=== PATIENT | female | born 1965 | race Caucasian/White ===

== ENCOUNTER 2016-05-08 00:16 | Emergency (ER) | payer BC ==
[2016-05-08 00:24] VITALS: BP 145/77; PULSE 81; RESP 18; TEMP 97.1
--- NOTE | 2016-05-08 00:47 | ED ---
General Adult HPI - General Chief complaint: Extremity Injury, Lower Stated complaint: Leg Injury Time Seen by Provider: 05/08/16 00:28 Source: patient, RN notes reviewed Mode of arrival: wheelchair Limitations: no limitations - History of Present Illness Initial comments: Patient is a 50-year-old female who presents emergency room today with a chief complaint of increased pain to the left knee. Does admit that she was in bed when she went to stretch and felt a pop behind the left knee. She states that she's had ACL reconstruction in the past. She states pain is worse with extension. States she feels it to the lateral posterior aspect. Denies any other complaints or symptoms. Patient denies any recent fever, chills, shortness of breath, chest pain, back pain, abdominal pain, nausea or vomiting, numbness or tingling, dysuria or hematuria, constipation or diarrhea, headaches or visual changes, or any other complaints. - Related Data Home Medications Medication Instructions Recorded Confirmed Atorvastatin [Lipitor] 40 mg pe PO DAILY 05/08/16 05/08/16 Omeprazole [PriLOSEC] 20 mg PO DAILY 05/08/16 05/08/16 Previous Rx's Medication Instructions Recorded Ibuprofen [Motrin] 600 mg PO Q6HR PRN #40 day 05/08/16 Allergies Allergy/AdvReac Type Severity Reaction Status Date / Time No Known Allergies Allergy Verified 05/08/16 00:24 Review of Systems ROS Statement: Those systems with pertinent positive or pertinent negative responses have been documented in the HPI. ROS Other: All systems not noted in ROS Statement are negative. Past Medical History Past Medical History: No Reported History, Asthma, Hypertension Additional Past Medical History / Comment(s): hypercholestremia. History of Any Multi-Drug Resistant Organisms: None Reported Past Surgical History: Adenoidectomy, Section, Tonsillectomy Additional Past Surgical History / Comment(s): ACL repair Past Psychological History: No Psychological Hx Reported Smoking Status: Former smoker Past Alcohol Use History: Occasional Past Drug Use History: None Reported General Exam - General Exam Comments Initial Comments: General: The patient is awake and alert, in no distress, and does not appear acutely ill. Neck: The neck is supple, there is no tenderness or JVD. Cardiovascular: There is a regular rate and rhythm. No murmur, rub or gallop is appreciated. Respiratory: Lungs are clear to auscultation, respirations are non-labored, breath sounds are equal. No wheezes, stridor, rales, or rhonchi. Musculoskeletal: Normal appearance of the left knee no obvious deformity. Shows limited range of motion with extension due to pain to the posterior lateral aspect. No specific bony tenderness. No tenderness to popliteal. No tenderness over the patella. Sensations intact with pulses equal bilaterally 2+ . Neurological: A&O x 3. CN II-XII intact, There are no obvious motor or sensory deficits. Coordination appears grossly intact. Speech is normal. Skin: Skin is warm and dry and no rashes or lesions are noted. Psychiatric: Normal mood and affect. Limitations: no limitations Course Vital Signs 05/08/16 00:18 Temperature 97.1 F L Pulse Rate 81 Respiratory 18 Rate Blood Pressure 145/77 O2 Sat by Pulse 100 Oximetry Medical Decision Making - Medical Decision Making Patient's x-rays reviewed shows no acute bony abnormality. No fracture or dislocation. Results were discussed with the patient. Patient will be placed in Aniceto wrap for comfort. Advised follow-up with her orthopedic doctor over the next 2 days. Advised ice elevate the affected area. Disposition Clinical Impression: Knee pain Disposition: HOME SELF-CARE Condition: Good Instructions: Knee Pain (ED) Additional Instructions: Please continue to ice elevate the affected area. Please use crutches with weightbearing as tolerated.. Please follow-up with the orthopedic doctor over the next 2 days. Please return to emergency room if any symptoms increase or worsen or for any other concerns. Prescriptions: Ibuprofen [Motrin] 600 mg PO Q6HR PRN #40 day PRN Reason: Pain Referrals: Hemanth Cagle MD [Primary Care Provider] - 1-2 days Jim Salazar DO [Doctor of Osteopathic Medicine] - 1-2 days Time of Disposition: 01:16
--- NOTE | 2016-05-08 01:13 | XR ---
LEFT KNEE, 3 VIEWS INDICATION: Left knee pain COMPARISON: None. FINDINGS: AP, oblique, and lateral views of the left knee are obtained. There is no evidence of acute fracture or malalignment. There is mild osteoarthritis involving the medial femorotibial joint and patellofemoral joint with mild joint space loss and small marginal osteophytes. There are curvilinear sclerotic bands in the distal femoral metaphysis and proximal tibial metaphysis concerning for osteonecrosis/bone infarcts. There is no periosteal reaction. There is no significant joint effusion or soft tissue swelling. IMPRESSION: 1. Curvilinear sclerotic and limits apices of the tibia and femur concerning for osteonecrosis/bone infarcts. Correlate for predisposing clinical factors. MRI may be performed for further evaluation on a nonemergent basis. 2. Mild medial femorotibial and patellofemoral osteoarthritis.
== END 2016-05-08 01:38 | disposition home or self-care (01) ==
LOC: EC 00:16
DX: M25.562 Pain in left knee (principal); E78.00 Pure hypercholesterolemia, unspecified; Z87.891 Personal history of nicotine dependence; Z79.899 Other long term (current) drug therapy; X58.XXXA Exposure to other specified factors, initial encounter; Y92.89 Other specified places as the place of occurrence of the external cause
CPT/HCPCS: 99283

== ENCOUNTER → 2016-05-11 | Outpatient (CLI) | payer BC ==
--- NOTE | 2016-05-11 11:01 | MR ---
EXAMINATION TYPE: MR knee LT wo con DATE OF EXAM: 05/11/2016 8:27 AM COMPARISON: NONE HISTORY: Left knee pain TECHNIQUE: Multiplanar, multisequence imaging of the left knee is performed without IV contrast. FINDINGS: MEDIAL MENISCUS: Anterior and posterior horns are intact without tear. LATERAL MENISCUS: Anterior horn lateral meniscus has linear signal in the anterior portion. This does not communicate with an articular surface and can be compatible with type I degenerative change or i nternal derangement. Posterior horn lateral meniscus appears intact. CRUCIATE LIGAMENTS: Prior ACL repair is evident. Intact ACL is best visualized in the coronal plane n ot well visualized in the sagittal plane. There is diffuse fluid like expansion through the anchor si winifred. Posterior cruciate ligament is intact Through the postsurgical site. COLLATERAL LIGAMENTS: The medial collateral ligament and lateral collateral ligament complex are inta ct and unremarkable. EXTENSOR MECHANISM: Visualized quadriceps and patellar tendons are intact. EFFUSION: Small joint effusion is present extending of the suprapatellar space. POPLITEAL CYST: No popliteal/dudley cyst. TRICOMPARTMENT SPACES: Mild narrowing of the medial lateral compartment joint spaces is present. The patellofemoral joint space appears preserved. CARTILAGE: There is mild diffuse thinning of the articular cartilage of the medial and lateral compar tments. BONE MARROW SIGNAL: Small contusion of the posterior lateral tibial plateau may be present. OTHER: No additional significant abnormality is appreciated. IMPRESSION: 1. Internal derangement of the anterior horn lateral meniscus. 2. Small joint effusion. 3. There is fluid signal surrounding the ACL repair with expansion of the anchor sites. ACL appears t o be intact in the coronal plane but is less well visualized in the sagittal plane.
== END | disposition home or self-care (01) ==
LOC: RADMRIMAIN 07:49
PROVIDERS: ATTEND Orthopaedic Surgery
DX: M23.342 Other meniscus derangements, anterior horn of lateral meniscus, left knee (principal); M25.462 Effusion, left knee; Z98.890 Other specified postprocedural states

== ENCOUNTER 2016-05-15 09:28 | Day surgery (SDC) | payer BC ==
[2016-05-14 10:48] VITALS: BMI 33.0
--- NOTE | 2016-05-14 13:55 | HP ---
DATE OF ADMISSION: 05/15/2016 CHIEF COMPLAINT: Left knee pain. 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 She was getting up from the toilet when she felt her left knee lock. It has been painful since. She has had several locking and giving way episodes ever since. Previously, she had undergone ACL reconstruction in 2007 and was doing reasonably well up until recently. She notes intermittent swelling for the past 6 months. She did go to the emergency room for this. PAST MEDICAL HISTORY: Significant for hypertension, reflux disease and asthma. PAST SURGICAL HISTORY: Significant for left knee arthroscopic ACL reconstruction, tonsillectomy and . CURRENT MEDICATIONS: 1. Ibuprofen. 2. Lipitor. 3. Omeprazole. She denies drug allergies. FAMILY HISTORY: Unknown. SOCIAL HISTORY: Significant for previous tobacco use; however, she quit in 2012. A 16-point review of systems otherwise reviewed and is noncontributory. On examination, the patient is approximately 5 foot 1, 180 pounds of endomorphic habitus. HEENT exam is nonfocal. Neck is supple. She has painless passive motion of her left hip. Straight leg raise is negative. Active motion left knee, -6 to 115 degrees of flexion. She has a large effusion. She is tender about the medial and lateral joint line. Collaterals are stable, Sheridan is 1+ with a soft endpoint, pivot shift is positive. Posterior drawer is negative. Brennon's elicits medial and lateral pain. She has genu valgum alignment. Her distal neurovascular exam appears intact in the left lower extremity. MRI report for the left knee from 05/11/2016 shows an anterior horn lateral meniscal tear along with probable recurrent ACL rupture. Widening of the femoral and tibial tunnels are noted. A small effusion is present. IMPRESSION: Internal derangement of the left knee with probable ACL rerupture/anterior lateral meniscal tear. RECOMMENDATION: I talked to the patient at length regarding her treatment options. At this point, she is having significant pain and mechanical symptoms that limit her normal function and activities. After thorough discussion, she opts to proceed with surgery. We will plan to proceed with arthroscopic evaluation with probable ACL debridement, possible partial lateral meniscectomy. Risks and benefits are discussed at length in layman's terms. We will likely perform that as an outpatient procedure.
[~2016-05-15 09:28] MED LIST: DEXAMETHASONE SOD PHOSPHATE 10 MG/ML 1 ML VIAL IV ONE; LACTATED RINGERS 1,000 ML IV SCH; MIDAZOLAM 2 MG/2 ML VIAL IV PRN; ONDANSETRON 4 MG/2 ML VIAL IVP ONE; SCOPOLAMINE 1.5MG/72HR PATCH TRANSDERM ONE; ceFAZolin 2 GM in SODIUM CHLORIDE 0.9% 100 ML IVPB ONE
[2016-05-15] MEDS ORDERED: LIDOCAINE 1% 20 ML VIAL (10MG/ML) FOR IV START INTRADERMA ONE (10:33)
[2016-05-15 12:08] LABS: Basophils # (A) 0.1 k/uL (0-0.2); Basophils % (A) 1 %; CH 30.1; CHCM 33.1; Eosinophils # (A) 0.3 k/uL (0-0.7); Eosinophils % (A) 4 %; HCT 46.1 % (34.0-46.0); HDW 2.22; HGB 14.8 gm/dL (11.4-16.0); Luc % (Auto) 3; Lymphocytes # (A) 2.7 k/uL (1.0-4.8); Lymphocytes % (A) 28 %; MCH 29.5 pg (25.0-35.0); MCHC 32.2 g/dL (31.0-37.0); MCV 91.6 fL (80.0-100.0); Mean Platelet Volume 7.3; Monocytes # (A) 0.4 k/uL (0-1.0); Monocytes % (A) 4 %; Neutrophils # (A) 5.9 k/uL (1.3-7.7); Neutrophils % (A) 61 %; RBC 5.04 m/uL (3.80-5.40); RDW 13.3 % (11.5-15.5); WBC 9.8 k/uL (3.8-10.6); WBC (Perox) 9.51
[2016-05-15] MEDS ORDERED: SUCCINYLCHOLINE CHLORIDE 100 MG/5 ML SYR IV ONE (12:13)
[2016-05-15] MEDS ORDERED: HYDROmorphone (PF) 1 MG/ML ONE (12:13)
[2016-05-15] MEDS ORDERED: LIDOCAINE 1% INJ 10MG/ML (20 ML MDV) ONE (12:13)
[2016-05-15] MEDS ORDERED: fentaNYL (PF) 50 MCG/ML 2 ML AMP ONE (12:13)
[2016-05-15] MEDS ORDERED: MIDAZOLAM 2 MG/2 ML VIAL ONE (12:13)
[2016-05-15] MEDS ORDERED: PROPOFOL 10 MG/ML 20 ML VIAL IV ONE (12:13)
[2016-05-15 12:19] LABS: Potassium 4.3 mmol/L (3.5-5.1)
[2016-05-15 12:20] LABS: Partial Thromboplastin Time 24.9 sec (22.0-30.0); Prothrombin Time 10.4 sec (9.0-12.0)
--- NOTE | 2016-05-15 13:04 | P.OP ---
Date of Procedure: 05/15/16 Preoperative Diagnosis: Internal derangement left knee Postoperative Diagnosis: Left knee bucket-handle tear lateral meniscus/oblique tear posterior medial meniscus/grade 3 chondral injury distal lateral femoral condyle/partial ACL rerupture Procedure(s) Performed: Left knee arthroscopic partial lateral meniscectomy/partial medial meniscectomy/ ACL debridement/lateral femoral chondrectomy Anesthesia: JODIA Surgeon: Angel Cobos Estimated Blood Loss (ml): 10 Pathology: none sent Condition: stable Disposition: PACU Indications for Procedure: The patient's a 50-year-old female presents with progressive left knee pain and mechanical symptoms after a recent injury. She previously undergone ACL reconstruction. She was having locking and mechanical symptoms. A discussion of the risks and benefits of operative intervention versus continued conservative measures was made with patient. She opted to proceed with surgery. Operative risks to include infection, neurovascular injury, development of blood clots, possible incomplete resolution of symptoms, possible persistence of instability and need for subsequent procedures was discussed. Informed consent was obtained. Operative Findings: As below Description of Procedure: The patient was brought to the operating room, and after induction of general anesthesia examined the left knee. Collaterals were stable, Sheridan was 1+ with a firm endpoint, pivot shift was mildly positive. Posterior drawer was negative. The left lower extremity was prepped and draped in normal fashion. A superior lateral portal was made through a 3 mm skin incision superior and lateral to the patella. This was used for outflow. A moderate effusion was encountered. A lateral portal was made through a 5 mm a vertical skin incision lateral to the patella tendon above the joint line. Diagnostic arthroscopy was performed. A medial portal was made through a similar incision medial to the patellar tendon above the joint line. On inspection of the medial compartment, she is noted have an oblique tear involving the posterior horn of medial meniscus in the white-white junction. This was debrided back to stable base with straight baskets and motorized shaver. The edges were contoured. Mild degenerative changes involving medial compartment were noted. On inspection of the notch, a partial tear involving the ACL graft was noted with tissue impinging on the notch. This was debrided back with a motorized shaver to a stable base. The remaining graft appeared to be stable. On inspection of the lateral compartment, she is noted of bucket-handle tear involving the posterior lateral meniscus. This did not appear amenable to repair. This was debrided back to stable base with straight baskets and a motorized shaver. The edges were contoured. On inspection the patellofemoral articulation, loose chondral fibrillation however no loose chondral fragments. The gutters were clear debris. The knee was then thoroughly irrigated. The portals were closed with Steri-Strips. A sterile dressing was applied in addition to a compression stocking. The patient was awoken from general anesthesia and transferred to recovery room in good condition. Blood loss was estimated 10 mL. No complications were incurred.
[2016-05-15] MEDS ORDERED: ALBUTEROL NEBULIZED 2.5 MG/3 ML INHALATION ONE (13:06)
[2016-05-15] MEDS: HYDROmorphone 1 MG/ML 1 ML SYRINGE IVP PRN ×2 (13:15→13:20)
[2016-05-15 13:28] VITALS: TEMP 98.1
[2016-05-15 13:59] VITALS: RESP 16
[2016-05-15] MEDS ORDERED: HYDROcodone/APAP 7.5-325MG 1 EACH TAB PO ONE (14:30)
[2016-05-15 14:44] VITALS: BP 134/86; PULSE 91
== END 2016-05-15 15:18 | disposition home or self-care (01) ==
LOC: OR 09:28
PROVIDERS: ATTEND Orthopaedic Surgery
DX: S83.252A Bucket-handle tear of lateral meniscus, current injury, left knee, initial encounter (principal); S83.242A Other tear of medial meniscus, current injury, left knee, initial encounter; S83.512A Sprain of anterior cruciate ligament of left knee, initial encounter; X58.XXXA Exposure to other specified factors, initial encounter; Y93.E8 Activity, other personal hygiene; Y92.89 Other specified places as the place of occurrence of the external cause; M23.92 Unspecified internal derangement of left knee; M25.462 Effusion, left knee; M17.12 Unilateral primary osteoarthritis, left knee; I10 Essential (primary) hypertension; E78.5 Hyperlipidemia, unspecified; K21.9 Gastro-esophageal reflux disease without esophagitis; Z79.82 Long term (current) use of aspirin; Z79.1 Long term (current) use of non-steroidal anti-inflammatories (NSAID); Z79.899 Other long term (current) drug therapy; Z87.891 Personal history of nicotine dependence
CPT/HCPCS: 81025; 80051; 85025; 85610; 85730; 29880; J2250; J1100; J0690; J2405; J2001; J3010; J1170; J0330; J2704

== ENCOUNTER 2016-08-28 05:54 | Emergency (ER) | payer BC ==
[2016-08-28] MEDS ORDERED: SODIUM CHLORIDE 0.9% 1,000 ML IV STA ×2 (07:02)
[2016-08-28] MEDS ORDERED: ALBUTEROL NEBULIZED 2.5 MG/3 ML INHALATION STA (07:02)
[2016-08-28] MEDS ORDERED: IPRATROPIUM 0.5 MG/2.5 ML NEBU INHALATION STA (07:02)
[2016-08-28 07:16] VITALS: RESP 18
[2016-08-28 07:23] LABS: Basophils # (A) 0.1 k/uL (0-0.2); Basophils % (A) 1 %; CH 30.7; CHCM 34.1; Eosinophils # (A) 0.3 k/uL (0-0.7); Eosinophils % (A) 2 %; HCT 41.1 % (34.0-46.0); HDW 2.34; HGB 13.6 gm/dL (11.4-16.0); Luc # (Auto) 0.23; Luc % (Auto) 2; Lymphocytes # (A) 2.2 k/uL (1.0-4.8); Lymphocytes % (A) 19 %; MCH 29.8 pg (25.0-35.0); MCV 90.5 fL (80.0-100.0); Mean Platelet Volume 6.4; Monocytes # (A) 0.5 k/uL (0-1.0); Monocytes % (A) 4 %; Neutrophils # (A) 8.1 k/uL (1.3-7.7); Neutrophils % (A) 72 %; RBC 4.55 m/uL (3.80-5.40); RDW 13.8 % (11.5-15.5); WBC 11.3 k/uL (3.8-10.6); WBC (Perox) 10.97
[2016-08-28 07:32] LABS: ALT 51 U/L (9-52); AST 35 U/L (14-36); Alkaline Phosphatase 74 U/L (38-126); Anion Gap 14 mmol/L; Blood Urea Nitrogen 19 mg/dL (7-17); Calcium 10.2 mg/dL (8.4-10.2); Carbon Dioxide 23 mmol/L (22-30); Chloride 104 mmol/L (98-107); Glucose 103 mg/dL (74-99); Non-African American GFR(MDRD) >60 (>60 ml/min/1.73 sqM); Potassium 3.5 mmol/L (3.5-5.1); Sodium 141 mmol/L (137-145); Total Bilirubin 0.4 mg/dL (0.2-1.3); Total Protein 7.5 g/dL (6.3-8.2)
[2016-08-28 07:38] LABS: Partial Thromboplastin Time 24.6 sec (22.0-30.0); Prothrombin Time 10.1 sec (9.0-12.0)
--- NOTE | 2016-08-28 07:39 | XR ---
EXAMINATION TYPE: XR chest 2V DATE OF EXAM: 08/28/2016 COMPARISON: NONE HISTORY: Difficulty breathing, cough TECHNIQUE: Frontal and lateral views of the chest are obtained. FINDINGS: There is no focal air space opacity, pleural effusion, or pneumothorax seen. The cardiac silhouette size is within normal limits. The osseous structures are intact. IMPRESSION: No acute cardiopulmonary process.
--- NOTE | 2016-08-28 07:45 | ED ---
General Adult HPI - General Chief complaint: Shortness of Breath Stated complaint: asthma Time Seen by Provider: 08/28/16 06:13 Source: patient, RN notes reviewed, old records reviewed Mode of arrival: ambulatory - History of Present Illness Initial comments: This is a 50-year-old female the ER for evaluation. This patient today presents for evaluation of shortness of breath, worsening breath cough and congestion. This patient was camping, round [facility], and has been having symptoms worsening over the last 2 days. No fevers. She does have a chronic and worsening dry cough. No chest pain. No significant travel history, no leg pain or edema - Related Data Home Medications Medication Instructions Recorded Confirmed Atorvastatin [Lipitor] 40 mg pe PO DAILY 05/08/16 08/28/16 Omeprazole [PriLOSEC] 20 mg PO QAM 05/08/16 08/28/16 Aspirin 81 mg PO DAILY 05/14/16 08/28/16 Cholecalciferol [Vitamin D3] 2,000 unit PO DAILY 05/14/16 08/28/16 Cyanocobalamin (Vitamin B-12) 1,000 mcg PO DAILY 05/14/16 08/28/16 [Vitamin B-12] Multivitamins, Thera [Multivitamin] 1 tab PO DAILY 05/14/16 08/28/16 Triamterene-Hctz 75-50Mg [Maxzide 0.5 tab PO DAILY 05/14/16 08/28/16 75-50] Allergies Allergy/AdvReac Type Severity Reaction Status Date / Time No Known Allergies Allergy Verified 08/28/16 06:02 Review of Systems ROS Statement: Those systems with pertinent positive or pertinent negative responses have been documented in the HPI. ROS Other: All systems not noted in ROS Statement are negative. Past Medical History Past Medical History: Asthma, GERD/Reflux, Hyperlipidemia, Hypertension Additional Past Medical History / Comment(s): "my lt knee keeps giving out,torn ACL", cortisone inject to knee 05-08-16 and medrol dose pack Apr 2016 History of Any Multi-Drug Resistant Organisms: None Reported Past Surgical History: Adenoidectomy, Section, Tonsillectomy Additional Past Surgical History / Comment(s): ACL repair,c-sect x3 Past Anesthesia/Blood Transfusion Reactions: Postoperative Nausea & Vomiting ( PONV) Additional Past Anesthesia/Blood Transfusion Reaction / Comment(s): unknown family hx-adopted,No hx blood transfusion,claustrophobic Past Psychological History: Anxiety Smoking Status: Former smoker Past Alcohol Use History: Occasional Past Drug Use History: None Reported - Past Family History Father History Unknown: Yes Mother History Unknown: Yes General Exam General appearance: alert, in no apparent distress Head exam: Present: atraumatic, normocephalic, normal inspection Eye exam: Present: normal appearance, PERRL, EOMI. Absent: scleral icterus, conjunctival injection, periorbital swelling ENT exam: Present: normal exam, mucous membranes moist Neck exam: Present: normal inspection. Absent: tenderness, meningismus, lymphadenopathy Respiratory exam: Present: normal lung sounds bilaterally. Absent: respiratory distress, wheezes, rales, rhonchi, stridor Cardiovascular Exam: Present: normal rhythm, tachycardia, normal heart sounds. Absent: systolic murmur, diastolic murmur, rubs, gallop, clicks GI/Abdominal exam: Present: soft, normal bowel sounds. Absent: distended, tenderness, guarding, rebound, rigid Extremities exam: Present: normal inspection, full ROM, normal capillary refill. Absent: tenderness, pedal edema, joint swelling, calf tenderness Back exam: Present: normal inspection Neurological exam: Present: alert, oriented X3, CN II-XII intact Psychiatric exam: Present: normal affect, normal mood Skin exam: Present: warm, dry, intact, normal color. Absent: rash Course Vital Signs 08/28/16 08/28/16 05:57 07:16 Temperature 97.7 F Pulse Rate 110 H 96 Respiratory 20 18 Rate Blood Pressure 143/102 154/70 O2 Sat by Pulse 99 98 Oximetry - Reevaluation(s) Reevaluation #1: 08/28/16 07:43 Patient does have mild improvement after prolonged region Medical Decision Making - Medical Decision Making 50 female the ER for evaluation. This patient presents here for evaluation of shortness of breath cough and congestion, negative chest x-ray normal troponin EKG is normal, patient can be discharged and continue outpatient steroids and breathing treatments as directed - Lab Data Result diagrams: 08/28/16 07:03 08/28/16 07:03 Lab Results 08/28/16 08/28/16 Range/Units 07:03 07:03 WBC 11.3 H (3.8-10.6) k/uL RBC 4.55 (3.80-5.40) m/uL Hgb 13.6 (11.4-16.0) gm/dL Hct 41.1 (34.0-46.0) % MCV 90.5 (80.0-100.0) fL MCH 29.8 (25.0-35.0) pg MCHC 33.0 (31.0-37.0) g/dL RDW 13.8 (11.5-15.5) % Plt Count 499 H (150-450) k/uL Neutrophils % 72 % Lymphocytes % 19 % Monocytes % 4 % Eosinophils % 2 % Basophils % 1 % Neutrophils # 8.1 H (1.3-7.7) k/uL Lymphocytes # 2.2 (1.0-4.8) k/uL Monocytes # 0.5 (0-1.0) k/uL Eosinophils # 0.3 (0-0.7) k/uL Basophils # 0.1 (0-0.2) k/uL Sodium 141 (137-145) mmol/L Potassium 3.5 (3.5-5.1) mmol/L Chloride 104 (98-107) mmol/L Carbon Dioxide 23 (22-30) mmol/L Anion Gap 14 mmol/L BUN 19 H (7-17) mg/dL Creatinine 0.60 (0.52-1.04) mg/dL Est GFR (MDRD) Af Amer >60 (>60 ml/min/1.73 sqM) Est GFR (MDRD) Non-Af >60 (>60 ml/min/1.73 sqM) Glucose 103 H (74-99) mg/dL Calcium 10.2 (8.4-10.2) mg/dL Magnesium 2.0 (1.6-2.3) mg/dL Total Bilirubin 0.4 (0.2-1.3) mg/dL AST 35 (14-36) U/L ALT 51 (9-52) U/L Alkaline Phosphatase 74 (38-126) U/L Total Protein 7.5 (6.3-8.2) g/dL Albumin 4.6 (3.5-5.0) g/dL - Radiology Data Radiology results: report reviewed (Chest x-ray is negative for acute disease), image reviewed Disposition Clinical Impression: Acute exacerbation of chronic obstructive airways disease Disposition: HOME SELF-CARE Condition: Good Instructions: Acute Bronchitis (ED) Referrals: Hemanth Cagle MD [Primary Care Provider] - 1-2 days
[2016-08-28 07:46] LABS: Creatine Kinase 267 U/L (30-135)
[2016-08-28 07:58] LABS: Creatine Kinase MB 1.6 ng/mL (0.0-2.4); Troponin I <0.012 ng/mL (0.000-0.034)
[2016-08-28 09:27] VITALS: BP 137/72; PULSE 114; TEMP 98.3
== END 2016-08-28 09:10 | disposition home or self-care (01) ==
LOC: EC 05:54
DX: J44.1 Chronic obstructive pulmonary disease with (acute) exacerbation (principal); K21.9 Gastro-esophageal reflux disease without esophagitis; I10 Essential (primary) hypertension; E78.5 Hyperlipidemia, unspecified; Z87.891 Personal history of nicotine dependence; Z79.82 Long term (current) use of aspirin; Z79.899 Other long term (current) drug therapy
CPT/HCPCS: 36415; 71020; 80053; 82550; 82553; 83735; 83880; 84484; 85025; 85379; 85610; 85730; 94644; 96360; 99285

== ENCOUNTER → 2017-12-07 | Outpatient (CLI) | payer BC ==
--- NOTE | 2017-12-12 14:12 | MR ---
MR left ankle HISTORY: Left ankle pain Multiplanar multisequence imaging through the left ankle No comparisons There is a cystic, T2 hyperintense conglomeration of multiseptated foci the lateral aspect of the ank le measuring approximately 2.7 cm the largest cystic focus and multiple smaller cystic foci noted jus t at the level anterior to the distal fibula and extending towards the cuboid within the subcutaneous fat where there is an additional focus measuring 12 to 13 mm. Additionally within the calcaneus ther e is a similar T2 hyperintense focus with internal septations measuring 14 mm x 16 mm extending from the joint space, coronal image 19, possible intraosseous ganglion, possibly arising from the sinus Ta rsi. Plantar calcaneus spur is noted. Achilles tendon, plantar aponeurosis, peroneal longus and brevis tendons, flexor and extensor tendons are intact. Degenerative changes are present at the intertarsal joints. IMPRESSION: Ganglion cysts involving the region of the calcaneus as well as the soft tissues laterall y as described, consider podiatry consult, ultrasound to confirm cystic appearance. Osteoarthritis.
== END ==
LOC: RADMRIMAIN 19:17
PROVIDERS: ATTEND Family Medicine
DX: M67.472 Ganglion, left ankle and foot (principal); M77.32 Calcaneal spur, left foot; M19.072 Primary osteoarthritis, left ankle and foot

== ENCOUNTER → 2021-01-30 | Outpatient (CLI) | payer BC ==
--- NOTE | 2021-01-31 12:43 | MM ---
Reason for exam: screening (asymptomatic). Last mammogram was performed 1 year and 1 month ago. Physical Findings: A clinical breast exam by your physician is recommended on an annual basis and results should be correlated with mammographic findings. MG 3D Screening Mammo W/Cad Bilateral CC and MLO view(s) were taken. Prior study comparison: December 28, 2019, mammogram. April 16, 2017, mammogram. There are scattered fibroglandular densities. No significant changes when compared with prior studies. ASSESSMENT: Benign, BI-RAD 2 RECOMMENDATION: Routine screening mammogram of both breasts in 1 year.
== END | disposition home or self-care (01) ==
LOC: RADMAMWWP 16:05
PROVIDERS: ATTEND Obstetrics & Gynecology
DX: Z12.31 Encounter for screening mammogram for malignant neoplasm of breast (principal)
CPT/HCPCS: 77063; 77067

== ENCOUNTER 2021-03-06 03:49 | Emergency (ER) | payer BC ==
[2021-03-06 03:55] VITALS: TEMP 97.8
[2021-03-06] MEDS ORDERED: IPRATROPIUM-ALBUTEROL 3 ML NEB INHALATION STA (04:11)
[2021-03-06] MEDS ORDERED: methylPREDNISolone SOD SUCCI 125 MG/2 ML VIAL IM ONE (04:11)
[2021-03-06 04:16] VITALS: RESP 18
[2021-03-06] MEDS ORDERED: LIDOCAINE VISCOUS 2% 15 ML CUP MUCOUS MEM STA (05:08)
--- NOTE | 2021-03-06 06:09 | XR ---
EXAM: XR Soft Tissue Neck CLINICAL HISTORY: ITS.REASON XR Reason: cough TECHNIQUE: Frontal and lateral views of the soft tissues of the neck. COMPARISON: No relevant prior studies available. FINDINGS: Airway: Unremarkable. No abnormal narrowing. Bones/joints: Moderate to advanced disc degeneration at C4-5 and C5-6. Mild facet arthropathy at C2-3, C3-4, C4-5, C5-6 and C6-7. Soft tissues: Unremarkable. No abnormal soft tissue prominence. Normal epiglottis. IMPRESSION: No evidence of acute cervical soft tissue pathology. Moderate to advanced disc degeneration at C4-5 and C5-6.
--- NOTE | 2021-03-06 06:12 | XR ---
EXAM: XR Chest, 2 Views CLINICAL HISTORY: ITS.REASON XR Reason: cough TECHNIQUE: Frontal and lateral views of the chest. COMPARISON: Comparison is made to prior chest x-ray from April 22, 2020. FINDINGS: Lungs: Unremarkable. No consolidation. Pleural space: Unremarkable. No pneumothorax. Heart: Unremarkable. No cardiomegaly. Mediastinum: Unremarkable. Bones/joints: Unremarkable. IMPRESSION: No evidence of acute cardiopulmonary process.
--- NOTE | 2021-03-06 07:01 | ED ---
URI HPI - General Chief Complaint: Upper Respiratory Infection Stated Complaint: BI Time Seen by Provider: 03/06/21 03:56 Source: patient Mode of arrival: ambulatory Limitations: no limitations - History of Present Illness Initial Comments: This patient's 55-year-old woman who presents to be a value for cough with some yellowish sputum some congestion that is been getting worse over the past 1-2 days. She states that prior to onset she had been doing some painting and thought that this irritated her airways. MD Complaint: cough, nasal congestion Onset/Timin -: days(s) Severity: moderate Quality: burning Consistency: constant Improves With: nothing Associated Symptoms: cough - Related Data Home Medications Medication Instructions Recorded Confirmed Albuterol Sulfate [Ventolin HFA] 2 puff INHALATION RT-Q4H PRN 08/28/16 03/06/21 Omeprazole 40 mg PO DAILY 08/28/16 03/06/21 Ascorbic Acid [Vitamin C] 1,000 mg PO DAILY 03/06/21 03/06/21 Beclomethasone Dipropionate [Qvar 1 puff INHALATION RT-DAILY 03/06/21 03/06/21 40 mcg Redihaler] Cholecalciferol (Vitamin D3) 75 mcg PO DAILY 03/06/21 03/06/21 [Vitamin D3 (3000 Iu)] L.acidoph,Paracasei, B.lactis 1 cap PO DAILY 03/06/21 03/06/21 [Probiotic] Metoprolol Tartrate [Lopressor] 12.5 mg PO DAILY 03/06/21 03/06/21 Montelukast Sodium [Singulair] 10 mg PO DAILY 03/06/21 03/06/21 Pseudoephedrine [Sudafed] 30 mg PO Q4H PRN 03/06/21 03/06/21 Ubidecarenone [Co Q-10] 300 mg PO DAILY 03/06/21 03/06/21 Zinc 50 mg PO DAILY 03/06/21 03/06/21 guaiFENesin SYRUP 100MG/5ML 200 mg PO Q6H PRN 03/06/21 03/06/21 [Robitussin] Previous Rx's Medication Instructions Recorded Azithromycin [Zithromax Z-pack (6 250 mg PO DIRECTED #6 tab 03/06/21 tabs)] Benzonatate [Tessalon Perles] 200 mg PO TID PRN #30 capsule 03/06/21 predniSONE 60 mg PO DAILY #30 tab 03/06/21 Allergies Allergy/AdvReac Type Severity Reaction Status Date / Time No Known Allergies Allergy Verified 03/06/21 11:35 Review of Systems ROS Statement: Those systems with pertinent positive or pertinent negative responses have been documented in the HPI. ROS Other: All systems not noted in ROS Statement are negative. Constitutional: Denies: fever, chills Respiratory: Reports: cough, dyspnea, wheezes Cardiovascular: Reports: chest pain. Denies: palpitations, edema, syncope Gastrointestinal: Denies: abdominal pain, vomiting, diarrhea Genitourinary: Denies: dysuria, hematuria Musculoskeletal: Denies: back pain Skin: Denies: rash Neurological: Denies: headache, weakness Past Medical History Past Medical History: Asthma, GERD/Reflux, Hyperlipidemia, Hypertension Additional Past Medical History / Comment(s): "my lt knee keeps giving out,torn ACL", cortisone inject to knee 05-08-16 and medrol dose pack Apr 2016 History of Any Multi-Drug Resistant Organisms: None Reported Past Surgical History: Adenoidectomy, Section, Tonsillectomy Additional Past Surgical History / Comment(s): ACL repair,c-sect x3 Past Anesthesia/Blood Transfusion Reactions: Postoperative Nausea & Vomiting (PONV) Additional Past Anesthesia/Blood Transfusion Reaction / Comment(s): unknown family hx-adopted,No hx blood transfusion,claustrophobic Past Psychological History: Anxiety Smoking Status: Never smoker Past Alcohol Use History: Occasional Past Drug Use History: None Reported - Past Family History Father History Unknown: Yes Mother History Unknown: Yes General Exam Limitations: no limitations General appearance: alert, in no apparent distress Head exam: Present: atraumatic, normocephalic Eye exam: Present: normal appearance. Absent: scleral icterus, conjunctival injection Neck exam: Present: normal inspection Respiratory exam: Present: wheezes. Absent: respiratory distress, rales, rhonchi, stridor Cardiovascular Exam: Present: regular rate, normal rhythm, normal heart sounds. Absent: systolic murmur, diastolic murmur, rubs, gallop GI/Abdominal exam: Present: soft. Absent: tenderness, guarding, rebound Extremities exam: Present: normal inspection, normal capillary refill. Absent: pedal edema, calf tenderness Back exam: Present: normal inspection. Absent: CVA tenderness (R), CVA tenderness (L) Neurological exam: Present: alert Skin exam: Present: warm, dry, intact, normal color. Absent: rash Course Vital Signs 03/06/21 03/06/21 03/06/21 03:52 04:12 04:30 Temperature 97.8 F Pulse Rate 106 H 101 H 92 Respiratory 22 18 Rate Blood Pressure 153/62 142/89 O2 Sat by Pulse 99 99 Oximetry 03/06/21 03/06/21 03/06/21 04:36 05:14 07:22 Temperature Pulse Rate 99 99 102 H Respiratory 18 18 Rate Blood Pressure 150/86 151/87 O2 Sat by Pulse 94 L 98 Oximetry Medical Decision Making - Lab Data Lab Results 03/06/21 Range/Units 04:24 Influenza Type A (PCR) Not Detected (Not Detectd) Influenza Type B (PCR) Not Detected (Not Detectd) RSV (PCR) Not Detected (Not Detectd) SARS-CoV-2 (PCR) Not Detected (Not Detectd) Disposition Clinical Impression: Tracheobronchitis Disposition: HOME SELF-CARE Condition: Good Instructions (If sedation given, give patient instructions): Acute Bronchitis (ED) Prescriptions: predniSONE 60 mg PO DAILY #30 tab Azithromycin [Zithromax Z-pack (6 tabs)] 250 mg PO DIRECTED #6 tab Is patient prescribed a controlled substance at d/c from ED?: No Referrals: Kirsten Langley MD [Primary Care Provider] - 1-2 days
[2021-03-06 07:24] VITALS: BP 151/87; PULSE 102
== END 2021-03-06 07:24 | disposition home or self-care (01) ==
LOC: EC 03:49
DX: J20.9 Acute bronchitis, unspecified (principal); J45.909 Unspecified asthma, uncomplicated; K21.9 Gastro-esophageal reflux disease without esophagitis; E78.5 Hyperlipidemia, unspecified; I10 Essential (primary) hypertension; F41.9 Anxiety disorder, unspecified; Z20.822 Contact with and (suspected) exposure to COVID-19
CPT/HCPCS: 99283; 96372; 94640; 87636; 70360; 71046; J2930

== ENCOUNTER 2021-03-06 10:13 | Emergency (ER) | payer BC ==
[2021-03-06] MEDS ORDERED: ACETAMINOPHEN TAB 500 MG TAB PO STA (11:36)
--- NOTE | 2021-03-06 11:46 | ED ---
URI HPI - General Chief Complaint: Upper Respiratory Infection Stated Complaint: SOB, revisit Time Seen by Provider: 03/06/21 11:24 Source: patient Mode of arrival: ambulatory Limitations: no limitations - History of Present Illness Initial Comments: Patient presents complaining of runny nose, postnasal drainage, scratchy throat, dry cough, denies any chest pain, no abdominal pain, no nausea or vomiting, no change in bowel examination. No skin rashes or lesions. Was seen ere last night and left before exam. Had a negative COVID-19 test and a ne gative RSV test. Chest x-ray was negative. - Related Data Home Medications Medication Instructions Recorded Confirmed Albuterol Sulfate [Ventolin HFA] 2 puff INHALATION RT-Q4H PRN 08/28/16 03/06/21 Omeprazole 40 mg PO DAILY 08/28/16 03/06/21 Ascorbic Acid [Vitamin C] 1,000 mg PO DAILY 03/06/21 03/06/21 Beclomethasone Dipropionate [Qvar 1 puff INHALATION RT-DAILY 03/06/21 03/06/21 40 mcg Redihaler] Cholecalciferol (Vitamin D3) 75 mcg PO DAILY 03/06/21 03/06/21 [Vitamin D3 (3000 Iu)] L.acidoph,Paracasei, B.lactis 1 cap PO DAILY 03/06/21 03/06/21 [Probiotic] Metoprolol Tartrate [Lopressor] 12.5 mg PO DAILY 03/06/21 03/06/21 Montelukast Sodium [Singulair] 10 mg PO DAILY 03/06/21 03/06/21 Pseudoephedrine [Sudafed] 30 mg PO Q4H PRN 03/06/21 03/06/21 Ubidecarenone [Co Q-10] 300 mg PO DAILY 03/06/21 03/06/21 Zinc 50 mg PO DAILY 03/06/21 03/06/21 guaiFENesin SYRUP 100MG/5ML 200 mg PO Q6H PRN 03/06/21 03/06/21 [Robitussin] Previous Rx's Medication Instructions Recorded Azithromycin [Zithromax Z-pack (6 250 mg PO DIRECTED #6 tab 03/06/21 tabs)] Benzonatate [Tessalon Perles] 200 mg PO TID PRN #30 capsule 03/06/21 predniSONE 60 mg PO DAILY #30 tab 03/06/21 Allergies Allergy/AdvReac Type Severity Reaction Status Date / Time No Known Allergies Allergy Verified 03/06/21 11:35 Review of Systems ROS Statement: Those systems with pertinent positive or pertinent negative responses have been documented in the HPI. ROS Other: All systems not noted in ROS Statement are negative. Past Medical History Past Medical History: Asthma, GERD/Reflux, Hyperlipidemia, Hypertension Additional Past Medical History / Comment(s): "my lt knee keeps giving out,torn ACL", cortisone inject to knee 05-08-16 and medrol dose pack Apr 2016 History of Any Multi-Drug Resistant Organisms: None Reported Past Surgical History: Adenoidectomy, Section, Tonsillectomy Additional Past Surgical History / Comment(s): ACL repair,c-sect x3 Past Anesthesia/Blood Transfusion Reactions: Postoperative Nausea & Vomiting (PONV) Additional Past Anesthesia/Blood Transfusion Reaction / Comment(s): unknown family hx-adopted,No hx blood transfusion,claustrophobic Past Psychological History: Anxiety Smoking Status: Never smoker Past Alcohol Use History: Occasional Past Drug Use History: None Reported - Past Family History Father History Unknown: Yes Mother History Unknown: Yes General Exam - General Exam Comments Initial Comments: Patient appears her malleolus but not toxic. Adequate peripheral perfusion. Limitations: no limitations General appearance: alert, in no apparent distress Head exam: Present: atraumatic, normocephalic, normal inspection Eye exam: Present: normal appearance, PERRL, EOMI. Absent: scleral icterus, conjunctival injection, periorbital swelling ENT exam: Present: mucous membranes moist, TM's normal bilaterally, normal external ear exam, other (Patient has clear postnasal drainage, clear sinus rhinorrhea. No evidence of peritonsillar abscess. No exudate. Mild posterior pharyngeal erythema. Airway is patent. No sinus tenderness.) Neck exam: Present: normal inspection. Absent: tenderness, meningismus, lymphadenopathy Respiratory exam: Present: normal lung sounds bilaterally, other (Patient has no tachypnea on exam. Respiratory rate is 18. No adventitious lung sounds). Absent: respiratory distress, wheezes, rales, rhonchi, stridor Cardiovascular Exam: Present: regular rate, normal rhythm, normal heart sounds. Absent: systolic murmur, diastolic murmur, rubs, gallop, clicks GI/Abdominal exam: Present: soft, normal bowel sounds. Absent: distended, tenderness, guarding, rebound, rigid Extremities exam: Present: normal inspection, full ROM, normal capillary refill. Absent: tenderness, pedal edema, joint swelling, calf tenderness Back exam: Present: normal inspection Neurological exam: Present: alert, oriented X3, CN II-XII intact Psychiatric exam: Present: normal affect, normal mood Skin exam: Present: warm, dry, intact, normal color. Absent: rash Course Vital Signs 03/06/21 10:27 Temperature 98.5 F Pulse Rate 60 Respiratory 28 H Rate Blood Pressure 155/74 O2 Sat by Pulse 97 Oximetry Medical Decision Making - Medical Decision Making Patient septostomy most consistent with a viral upper respiratory infection. Given the fact she had negative COVID-19 test and negative RSV test yesterday. This does raise suspicion of other viral causes. Does not appear to be consistent with bacterial sinusitis. Patient has no adventitious lung sounds are normal chest x-ray yesterday. Vital signs stable, oxygen saturation is normal otherwise. Plan for discharge. She has corticosteroids at home which she did not start. Patient was also prescribed antibiotics last night. Follow-up with your regular physician as directed. Return to the ER immediately if any symptoms worsen, new symptoms arise, or any other problems develop. Patient Streptococcus test is negative. Repeat vital signs are stable, patient afebrile. Patient was counseled on conservative therapy for viral upper respiratory infection. Patient voiced understanding. - Lab Data Lab Results 03/06/21 Range/Units 11:54 Group A Strep Rapid Negative (Negative) Disposition Clinical Impression: URI (upper respiratory infection) Disposition: HOME SELF-CARE Condition: Stable Instructions (If sedation given, give patient instructions): Upper Respiratory Infection (ED) Additional Instructions: Taking medications as prescribed by the ER last night. Follow-up with your regular physician as directed. Follow-up with your regular physician as directed. Return to the ER immediately if any symptoms worsen, new symptoms arise, or any other problems develop. Prescriptions: Benzonatate [Tessalon Perles] 200 mg PO TID PRN #30 capsule PRN Reason: Cough Is patient prescribed a controlled substance at d/c from ED?: No Referrals: Kirsten Langley MD [Primary Care Provider] - 03/11/21 Time of Disposition: 12:45
[2021-03-06] MEDS ORDERED: LIDOCAINE VISCOUS 2% 15 ML CUP MUCOUS MEM ONE (11:52)
[2021-03-06 12:54] VITALS: BP 132/78; PULSE 80; RESP 20; TEMP 98
== END 2021-03-06 13:06 | disposition home or self-care (01) ==
LOC: EC 10:13
DX: J06.9 Acute upper respiratory infection, unspecified (principal); J45.909 Unspecified asthma, uncomplicated; K21.9 Gastro-esophageal reflux disease without esophagitis; E78.5 Hyperlipidemia, unspecified; I10 Essential (primary) hypertension; F41.9 Anxiety disorder, unspecified; Z20.822 Contact with and (suspected) exposure to COVID-19
CPT/HCPCS: 87081; 87430; 99283

== ENCOUNTER 2022-09-24 10:02 | Day surgery (SDC) | payer BC ==
[2022-09-18 10:55] VITALS: BMI 34.0
[~2022-09-24 10:02] MED LIST changes: +ATROPINE SULFATE 0.4 MG/ML 1 ML VIAL IM ONE; -DEXAMETHASONE SOD PHOSPHATE 10 MG/ML 1 ML VIAL IV ONE; -MIDAZOLAM 2 MG/2 ML VIAL IV PRN; -ONDANSETRON 4 MG/2 ML VIAL IVP ONE; -SCOPOLAMINE 1.5MG/72HR PATCH TRANSDERM ONE; -ceFAZolin 2 GM in SODIUM CHLORIDE 0.9% 100 ML IVPB ONE
[2022-09-24 10:47] VITALS: TEMP 97.7
[2022-09-24 10:53] LABS: Glucose,Whole Blood 109 mg/dL (70-110)
[2022-09-24] MEDS ORDERED: MIDAZOLAM 2 MG/2 ML VIAL ONE (11:35)
[2022-09-24] MEDS ORDERED: LIDOCAINE 2% INJ 20 MG/ML (2 ML VIAL) ONE (11:35)
[2022-09-24] MEDS ORDERED: KETAMINE 10 MG/ML 20 ML VIAL ONE (11:35)
[2022-09-24] MEDS ORDERED: PROPOFOL 10 MG/ML 20 ML VIAL IV ONE (11:35)
[2022-09-24] MEDS ORDERED: fentaNYL (PF) 50 MCG/ML 2 ML AMP ONE (11:35)
[2022-09-24] MEDS ORDERED: LIDOCAINE 2% (PF) 20 MG/ML 2 ML AMP INHALATION ONE (11:50)
[2022-09-24 12:05] VITALS: RESP 16
[2022-09-24 12:18] VITALS: BP 124/85; PULSE 97
--- NOTE | 2022-09-24 12:19 | PCN ---
PROCEDURE NOTE PROCEDURE: Bronchoscopy, airway examination, therapeutic lavage, BAL right middle lobe. PREOP DIAGNOSIS: Chronic cough. POSTOP DIAGNOSIS: Chronic cough. FIRST SANTA'S HELPER: Viki Veliz. ANESTHESIA: General anesthesia. DESCRIPTION OF PROCEDURE: There was informed consent and universal timeout. The patient's procedure took place in room #1 [facility]. After the patient was adequately sedated and fully monitored, the bronchoscope was inserted through the right nostril. It passed through the right nasopharynx into the oropharynx. The hypopharynx was identified and topicalized. The hypopharyngeal structures, including anterior commissure, true cords, false cords, arytenoids, epiglottis, vallecula, and piriform sinuses right and left, were all normal. The glottic opening was topicalized and the bronchoscope was pushed through the glottic opening into the trachea. There was [id number] tracheomalacia noted. Tracheal brandi was sharp. The right and left mainstem were topicalized. The right upper lobe and its 3 segments, the right middle lobe and its 2 segments, the right lower lobe and its 5 segments, the left upper lobe proper and its 2 segments, the lingula and its 2 segments, and the left lower lobe and its 4 segments were all found to have similar findings of mild bronchitis. There were minimal secretions. There was no dominant mass or tumor. There was some mucosal friability. Secretions were suctioned without difficulty. The bronchoscope was then wedged into the right middle lobe. We did a formal BAL with 30 mL of fluid recovered. It will be sent to the laboratory for analysis. The patient tolerated the procedure well without difficulty. There was no immediate complication. The patient tolerated the procedure well and will be recovered. MMODL / IJN: [id number] /
[2022-09-25 04:48] LABS: Appearance,BF Blood Tinged (Clear); RBC, Body Fluid 101875 /UL (0-2000)
[2022-09-28 09:36] LABS: Nucleated Cells, Body Fluid 31 /UL
== END 2022-09-24 13:00 | disposition home or self-care (01) ==
LOC: ORWHC2ENDO 10:02
PROVIDERS: ATTEND Internal Medicine Critical Care Medicine
DX: J45.909 Unspecified asthma, uncomplicated (principal); U07.1 COVID-19; F41.9 Anxiety disorder, unspecified; Z79.82 Long term (current) use of aspirin; Z79.899 Other long term (current) drug therapy
CPT/HCPCS: 88108; 88305; 89050; 87070; 87205; 87075; 87116; 87102; 87206; 31624; J2250; J0461; J3010; J2704; J2001 ×2

== ENCOUNTER 2023-04-02 11:40 | Day surgery (SDC) | payer BC ==
[2023-03-30 11:12] VITALS: BMI 34.4
[~2023-04-02 11:40] MED LIST changes: -ATROPINE SULFATE 0.4 MG/ML 1 ML VIAL IM ONE; +LIDOCAINE 1% (10MG/ML) FOR IV START INTRADERMA PRN
[2023-04-02] MEDS: LACTATED RINGERS 1,000 ML IV SCH (12:27)
[2023-04-02 12:42] VITALS: TEMP 97.7
[2023-04-02 12:44] LABS: Glucose,Whole Blood 98 mg/dL (70-110)
[2023-04-02] MEDS: ATROPINE SULFATE 0.4 MG/ML 1 ML VIAL IM ONE (12:46)
[2023-04-02] MEDS ORDERED: PROPOFOL 10 MG/ML 20 ML VIAL IV ONE (13:01)
[2023-04-02] MEDS ORDERED: LIDOCAINE 1% INJ 10MG/ML (20 ML MDV) ONE (13:01)
[2023-04-02] MEDS: LIDOCAINE 2% INJ 20 MG/ML INTRATRACH ONE (13:09)
[2023-04-02 13:40] VITALS: BP 106/70; PULSE 100; RESP 22
--- NOTE | 2023-04-02 19:43 | PCN ---
PROCEDURE NOTE PULMONARY/CRITICAL CARE PROCEDURE NOTE: PROCEDURES PERFORMED: Bronchoscopy, airway examination, therapeutic lavage, BAL right middle lobe, endobronchial biopsies left lower lobe. PREOPERATIVE DIAGNOSIS: Chronic cough and tracheobronchomalacia. POSTOPERATIVE DIAGNOSIS: Chronic cough and tracheobronchomalacia. GROCERY BUYER: Dr. Liu. LOCKER OPERATOR: First director medical surgical is Viki Veliz. The patient's procedure took place in room #1. ANESTHESIA: Provided general anesthesia. DESCRIPTION OF PROCEDURE: There was informed consent and universal timeout. After the patient was adequately sedated and being fully monitored, the bronchoscope was inserted through the right nostril. It passed through the right nasopharynx into the oropharynx. The hypopharynx was identified. The hypopharyngeal structures, including anterior commissure, true cords, false cords, arytenoids, piriform sinuses right and left, vallecula, and epiglottis, all appeared normal. After topicalization of the glottic opening, the bronchoscope was pushed through the glottic opening into the trachea. Trachea appeared relatively normal say for tracheomalacia which was noted on a previous bronchoscopy. There were some secretions noted in the distal trachea. The tracheal brandi was sharp. The right and left mainstem were topicalized. We did a thorough evaluation of the right upper lobe and its 3 segments, the right middle lobe and its 2 segments, the right lower lobe and its 5 segments, left upper lobe proper and its 2 segments, lingula and its 2 segments, and the left lower lobe and its 4 segments. There were diffuse bronchitis changes throughout. The mucosa was erythematous and hyperemic. There was some vascular engorgement. There was some mucosal friability. There was no dominant mass or tumor. Next bronchoscope was wedged into the right middle lobe. We did a formal BAL with 38 mL of fluid recovered. It will be sent for analysis. On the left side, because of the significant chronic inflammation noted, we did endobronchial biopsies in the left lower lobe. The patient tolerated the procedure well. There was no immediate complication. The patient will be recovered. The bronchoscope was withdrawn. The biopsies and the fluid will be sent for analysis. MMODL / IJN: [id number] /
[2023-04-03 06:21] LABS: Appearance,BF Blood Tinged (Clear); RBC, Body Fluid 14450 /UL (0-2000)
[2023-04-05 10:57] LABS: Nucleated Cells, Body Fluid 25 /UL
== END 2023-04-02 14:30 | disposition home or self-care (01) ==
LOC: ORWHC2ENDO 11:40
PROVIDERS: ATTEND Internal Medicine Critical Care Medicine
DX: J42 Unspecified chronic bronchitis (principal); F34.1 Dysthymic disorder; K21.9 Gastro-esophageal reflux disease without esophagitis; E78.00 Pure hypercholesterolemia, unspecified; Q32.0 Congenital tracheomalacia; F41.9 Anxiety disorder, unspecified; I10 Essential (primary) hypertension; E78.5 Hyperlipidemia, unspecified; E11.9 Type 2 diabetes mellitus without complications; Z79.82 Long term (current) use of aspirin; Z88.2 Allergy status to sulfonamides; Z79.899 Other long term (current) drug therapy
CPT/HCPCS: 31624; 31625; 87798 ×3; 87496; 87498; 87529; 88108; 88305; 89050; 87502; 87634; 87070; 87205; 87116; 87102; 87206; 87635; J2001 ×2; J0461; J2704

== ENCOUNTER → 2023-05-26 | Outpatient (CLI) | payer BC ==
--- NOTE | 2023-05-26 12:10 | FL ---
COMPARISON: NONE DATE OF EXAM: 05/26/2023 HISTORY: Dysphagia A number of thin and thick substances were ingested under the care of the department of speech pathol ogy. There is no evidence of aspiration or penetration. There is no evidence of obstruction. No yana ges submitted in 39 seconds fluoroscopy provided IMPRESSION: 1. No evidence of aspiration or penetration.
== END | disposition home or self-care (01) ==
LOC: RADFLMAIN 11:24
PROVIDERS: ATTEND Otolaryngology
DX: R22.1 Localized swelling, mass and lump, neck (principal); R13.10 Dysphagia, unspecified
CPT/HCPCS: 74230

== ENCOUNTER → 2023-05-28 | Outpatient (CLI) | payer BC ==
--- NOTE | 2023-05-31 19:20 | MR ---
EXAMINATION TYPE: MR neck wo/w con DATE OF EXAM: 05/28/2023 7:11 AM CLINICAL INDICATION:Female, 57 years old with history of R22.1 LOCALIZED SWELLING, MASS AND LUMP, NEC K; PH, COMPARISON: CT neck 09/20/2022, MRI Neck 11/23/2022 TECHNIQUE: Multi planar, multi sequence imaging was performed of the neck soft tissues. MR contrast: IV Contrast: cc 8.5 cc Gadavist FINDINGS: The glottis appears unremarkable. Several nonenlarged anterior chain lymph nodes are iden tified. The parotid glands and submandibular glands are symmetrical. No evidence for intraglandular mass. There is a high T2/high T1 signal lesion posterior to the right internal carotid artery measuri ng at least 21 x 12 mm which is fat density on prior CT. No abnormal postcontrast enhancement. Fat-sa t sequences demonstrate loss of signal. No abnormal postcontrast enhancement. The cervical vertebral bodies have preserved heights and alignment. Multilevel disc desiccation and anterior osteophytosis are present. The cervical spinal cord demonstrates a normal appearance. IMPRESSION: Fat-containing lesion just posterior to the right internal carotid artery at the skull base measuring up to 21 x 12 mm and is most compatible with lipoma. No suspicious masses or lymphadenopathy. Stable in size from prior CT.
== END | disposition home or self-care (01) ==
LOC: RADMRIMAIN 06:08
PROVIDERS: ATTEND Otolaryngology
DX: R22.1 Localized swelling, mass and lump, neck (principal)
CPT/HCPCS: 70543; A9585

== ENCOUNTER → 2024-01-12 | Outpatient (CLI) | payer BC ==
--- NOTE | 2024-01-13 05:24 | MR ---
EXAMINATION TYPE: MR knee RT wo con DATE OF EXAM: 01/12/2024 COMPARISON: Outside right knee x-ray and January 03, 2024 HISTORY: Rt knee injury, medial pain for 4 months. History of prior meniscal and ACL surgery. TECHNIQUE: Multiplanar, multisequence images of the knee is performed without IV contrast. FINDINGS: MEDIAL MENISCUS: Truncated appearance to posterior horn with abnormal signal extending to inferior ar ticular surface. LATERAL MENISCUS: Anterior and posterior horns are intact without tear. CRUCIATE LIGAMENTS: The anterior and posterior cruciate ligaments are intact and unremarkable. COLLATERAL LIGAMENTS: The medial collateral ligament and lateral collateral ligament complex are inta ct and unremarkable. EXTENSOR MECHANISM: Visualized quadriceps and patellar tendons are intact. EFFUSION: Small size suprapatellar joint effusion. POPLITEAL CYST: Moderate size popliteal/dudley cyst measuring 5.8 cm long axis sagittal image 12. TRICOMPARTMENT SPACES: [id number] tricompartment joint space loss and spurring. CARTILAGE: Cartilaginous loss medial tibial femoral compartment. BONE MARROW SIGNAL: No focal abnormal marrow signal is appreciated. OTHER: No additional significant abnormality is appreciated. IMPRESSION: 1. Mild to moderate tricompartment degenerative changes are present as detailed above. 2. Suspect prior surgical change to posterior horn medial meniscus but a recurrent full-thickness tea r is suspected. 3. Small-size suprapatellar joint effusion. 4. Moderate-size popliteal cyst. [facility], , 01/13/2024 5:22 AM
== END | disposition home or self-care (01) ==
LOC: RADMRIMAIN 12:38
PROVIDERS: ATTEND Orthopaedic Surgery
DX: M17.11 Unilateral primary osteoarthritis, right knee (principal); M25.461 Effusion, right knee; M71.21 Synovial cyst of popliteal space [Baker], right knee

== ENCOUNTER → 2024-02-21 | Outpatient (CLI) | payer BC ==
[2024-02-21 15:16] LABS: Basophils # (A) 0.06 X 10*3/uL (0.00-0.10); Basophils % (A) 0.8 %; Eosinophils # (A) 0.24 X 10*3/uL (0.04-0.35); Eosinophils % (A) 3.1 %; HCT 43.5 % (37.2-46.3); Lymphocytes # (A) 2.63 X 10*3/uL (0.90-5.00); Lymphocytes % (A) 34.5 %; MCH 28.7 pg (27.0-32.0); MCHC 32.2 g/dL (32.0-37.0); MCV 89.3 FL (80.0-97.0); Mean Platelet Volume 8.3 FL (9.5-12.2); Monocytes # (A) 0.57 X 10*3/uL (0.20-1.00); Monocytes % (A) 7.5 %; NRBC Per 100 WBC 0 X 10*3/uL (0.00-0.01); Neutrophils % (A) 53.8 %; Platelet Count 422 X 10*3/uL (140-440); RBC 4.87 X 10*6/uL (4.10-5.20); RDW 13.7 % (11.5-14.5); WBC 7.62 X 10*3/uL (4.50-10.00)
[2024-02-21 16:03] LABS: Blood Urea Nitrogen 12.9 mg/dL (9.0-27.0); Carbon Dioxide 26.2 mmol/L (21.6-31.8); Chloride 103 mmol/L (96-109); Glucose 97 mg/dL (70-110); Potassium 4.5 mmol/L (3.5-5.5); Sodium 140 mmol/L (135-145)
== END | disposition home or self-care (01) ==
LOC: LABWHC1 10:53
PROVIDERS: ATTEND Orthopaedic Surgery
DX: Z01.818 Encounter for other preprocedural examination (principal); M23.91 Unspecified internal derangement of right knee
CPT/HCPCS: 36415; 80048; 85025

== ENCOUNTER 2024-03-10 07:44 | Day surgery (SDC) | payer BC ==
[2024-03-07 15:27] VITALS: BMI 35.9
--- NOTE | 2024-03-09 10:50 | P.HPOR ---
History of Present Illness H&P Date: 03/09/24 Chief Complaint: Right knee pain The patient is a 58-year-old female who presents with right knee pain after an injury approximately 4 months ago. She felt a pop in her knee. She has had significant pain ever since. She notes medial pain with any weightbearing activities. She notes catching and locking. She denies previous problems. Review of Systems Per HPI Past Medical History Past Medical History: Asthma, Diabetes Mellitus, GERD/Reflux, Hearing Disorder / Deafness, Hyperlipidemia, Hypertension Additional Past Medical History / Comment(s): hx tracheomalacia recently di agnosed w/in last year, rt torn meniscus, Hx racing heart rate, mild Covid 2022. Back problems. Cough, tongue swelling and clearing of throat after started on Lisinopril. 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 Hx colon polyps. Pre-Diabetes, monitors blood sugar at home and watches diet. Some trouble hearing. History of Any Multi-Drug Resistant Organisms: None Reported Past Surgical History: Adenoidectomy, Section, Orthopedic Surgery, Tonsillectomy Additional Past Surgical History / Comment(s): Section X3, left knee surgery X2, fatty tumor removed from back, colonoscopies/polypectomy, bronchoscopies. Past Anesthesia/Blood Transfusion Reactions: Postoperative Nausea & Vomiting (PONV) Additional Past Anesthesia/Blood Transfusion Reaction / Comment(s): Unknown family hx-adopted. No hx blood transfusions. Claustrophobic. PONV after one of her C-Sections. After Bronchoscopy had severe blood shot eyes. tracheomalacia Smoking Status: Former smoker - Past Family History Father History Unknown: Yes Family Medical History: Unable to Obtain Mother History Unknown: Yes Family Medical History: Unable to Obtain Additional Family Medical History / Comment(s): Patient adopted, family hx unknown. Medications and Allergies Home Medications Medication Instructions Recorded Confirmed Type Omeprazole 40 mg PO QAM 08/28/16 03/07/24 History Metoprolol Tartrate [Lopressor] 12.5 mg PO QAM 03/06/21 03/07/24 History Zinc 50 mg PO DAILY 03/06/21 03/07/24 History Aspirin [Adult Low Dose Aspirin EC] 81 mg PO DAILY 09/18/22 03/07/24 History FLUoxetine HCL [PROzac] 10 mg PO QAM 09/18/22 03/07/24 History Multivit with Calcium,Iron,Min 1 each PO DAILY 09/18/22 03/07/24 History [Women's Multivitamin] Rosuvastatin [Crestor] 10 mg PO DAILY 09/18/22 03/07/24 History Ubidecarenone [Co Q-10] 100 mg PO DAILY 03/30/23 03/07/24 History Ascorbic Acid [Vitamin C] 500 mg PO DAILY 03/07/24 03/07/24 History Budesonide/Formoterol Fumarate 2 inhalation INHALATION DAILY@1100 03/07/24 03/07/24 History [Budesonide-Formoterol 160-4.5] Cholecalciferol [Vitamin D3 (25 50 mcg PO DAILY 03/07/24 03/07/24 History Mcg = 1000 Iu)] Erythromycin [Hiren-Tab] 250 mg PO MOWEFR 03/07/24 03/07/24 History Allergies Allergy/AdvReac Type Severity Reaction Status Date / Time lisinopril AdvReac cough, Verified 03/07/24 15:03 tongue swelling Physical Examination - Knee right Appearance: effusion Effusion grade: grade 2 Tenderness with palpation: anterior, medial Pain: throughout ROM Gait: limping ROM: extension: -5 degrees ROM: flexion: 120 degrees Crepitus with motion: Yes Strength: extension: 5/5 Strength: flexion: 5/5 Meniscal tests: medial meniscal tests: positive, medial joint line pain: positive Results Patient is a well-developed well-nourished female approximately 5 foot 1, 185 pounds of endomorphic habitus. HEENT exam is nonfocal, neck is supple. She has painless passive motion of her right hip. She is tender about the medial joint line of the right knee. Collaterals are stable, Sheridan's negative, Brennon's elicits medial pain. She does have an antalgic gait pattern. Her distal neurovascular exam appears intact in the right lower extremity. - Diagnostic results Knee MRI: image reviewed (MRI of the right knee obtained previously shows a posterior medial meniscal tear.) Assessment and Plan Assessment: Internal derangement right kneesymptomatic medial meniscal tear Plan: I talked to the patient at length regarding her condition along with treatment options. This point she is quite symptomatic having pain and mechanical symptoms after this acute injury. After a thorough discussion she opts to proceed with surgery. We will plan to proceed with right knee arthroscopy with probable partial medial meniscectomy. Risks and benefits were discussed at length in layman's terms. We will likely perform that as an outpatient procedure.
[~2024-03-10 07:44] MED LIST changes: -LIDOCAINE 1% (10MG/ML) FOR IV START INTRADERMA PRN; +MIDAZOLAM 2 MG/2 ML VIAL IV PRN
[2024-03-10] MEDS: IV FLUID CONTINUATION 500 ML IV ONE (08:00)
[2024-03-10] MEDS: ONDANSETRON 4 MG/2 ML VIAL IVP ONE (08:29)
[2024-03-10] MEDS: SCOPOLAMINE 1 MG/72 HR PATCH TRANSDERM ONE (08:29)
[2024-03-10] MEDS: DEXAMETHASONE SOD PHOSPHATE 4 MG/ML 1 ML VIAL IV ONE (08:29)
[2024-03-10] MEDS ORDERED: PROPOFOL 10 MG/ML 20 ML VIAL IV ONE (09:44)
[2024-03-10] MEDS ORDERED: fentaNYL (PF) 50 MCG/ML 2 ML AMP ONE (09:44)
[2024-03-10] MEDS ORDERED: SUCCINYLCHOLINE CHLORIDE 200 MG/10 ML VIAL IV ONE (09:44)
[2024-03-10] MEDS ORDERED: ALBUTEROL HFA INHALER INHALATION ONE (09:44)
[2024-03-10] MEDS ORDERED: MIDAZOLAM 2 MG/2 ML VIAL ONE (09:44)
[2024-03-10] MEDS ORDERED: LIDOCAINE 1% INJ 10MG/ML (20 ML MDV) ONE (09:44)
[2024-03-10] MEDS: EPINEPHrine (PF) 1 ML in SODIUM CHLORIDE 0.9% IRRIGATIO 3,000 ML IRRIGATION ONE (10:11)
[2024-03-10] MEDS: LACTATED RINGERS 1,000 ML IV ONE (10:19)
--- NOTE | 2024-03-10 10:42 | P.OP ---
Date of Procedure: 03/10/24 Preoperative Diagnosis: Right knee internal derangementmedial meniscal tear Postoperative Diagnosis: Right knee posterior medial meniscal tear/posterior lateral meniscal tear Procedure(s) Performed: Right knee arthroscopic partial medial meniscectomy/partial lateral meniscectomy Anesthesia: FABRICIO Surgeon: Angel Cobos Estimated Blood Loss (ml): 10 Pathology: none sent Condition: stable Disposition: PACU Indications for Procedure: The patient is a 58-year-old female who presents with right knee pain and mechanical symptoms after an acute twisting injury despite conservative measures. A discussion of the risks and benefits of operative intervention versus continued conservative measures was made with the patient. She opted to proceed with surgery. Operative risks include infection, neurovascular injury developing blood clots, possible incomplete resolution of symptoms, possible worsening of symptoms need for subsequent procedures was discussed. Informed consent was obtained. Operative Findings: As below Description of Procedure: The patient was brought to the operating room, and after induction of general anesthesia examined the right knee. Collaterals were stable, Sheridan was negative, and posterior drawer was negative. The right lower extremity was prepped and draped in a normal fashion. A superior lateral portal was made through a 3 mm skin incision superior and lateral to the patella. This was used for outflow. A lateral portal was made through a 5 mm vertical skin incision lateral to the patella tendon above the joint line. Diagnostic arthroscopy was performed. On inspection of the medial compartment, an oblique tear involving the posterior horn the medial meniscus in the white-red junction was noted. This was debrided back to stable base with straight baskets and a motorized shaver. The remaining medial meniscus was stable and intact. Grade 2-3 chondral changes were noted diffusely on the posterior medial femoral condyle. On inspection of the notch, the anterior cruciate ligament appeared to be intact. On inspection of the lateral compartment, a radial tear involving the middle to posterior one third of the lateral meniscus was noted in the white- white junction. This was debrided back to stable base with straight baskets and a motorized shaver. Grade 2-3 chondral changes were noted diffusely in the lateral compartment. On inspection of the patellofemoral articulation, there was some chondral fibrillation however no loose chondral fragments. The gutters were clear debris. The knee was then thoroughly irrigated. The portals were closed with Steri-Strips. A sterile dressing was applied in addition to a compression stocking. The patient was awoken from general anesthesia and transferred to recovery room in good condition. Blood loss was estimated at 10 mL. No complications were incurred.
[2024-03-10 11:01] VITALS: TEMP 97.3
[2024-03-10] MEDS: HYDROmorphone 0.5 MG/0.5 ML SYRINGE IVP PRN (11:03)
[2024-03-10] MEDS: RACEPINEPHRINE 2.25% NEB 0.5 ML NEBU INHALATION STA (11:07)
[2024-03-10] MEDS: LIDOCAINE 4% (PF) 5 ML AMP IH STA (11:10)
[2024-03-10 11:34] LABS: Glucose,Whole Blood 131 mg/dL (70-110)
[2024-03-10 12:49] VITALS: BP 146/74
[2024-03-10 13:16] VITALS: PULSE 72; RESP 16
== END 2024-03-10 13:57 | disposition home or self-care (01) ==
LOC: OR 07:44
PROVIDERS: ATTEND Orthopaedic Surgery
DX: S83.241A Other tear of medial meniscus, current injury, right knee, initial encounter (principal); S83.281A Other tear of lateral meniscus, current injury, right knee, initial encounter; K21.9 Gastro-esophageal reflux disease without esophagitis; J45.909 Unspecified asthma, uncomplicated; I10 Essential (primary) hypertension; E78.5 Hyperlipidemia, unspecified; E11.9 Type 2 diabetes mellitus without complications; H91.90 Unspecified hearing loss, unspecified ear; Z86.0100 Personal history of colon polyps, unspecified; Z86.16 Personal history of COVID-19; Z87.891 Personal history of nicotine dependence; Z88.8 Allergy status to other drugs, medicaments and biological substances; Z90.89 Acquired absence of other organs; Z79.51 Long term (current) use of inhaled steroids; Z79.82 Long term (current) use of aspirin; Z98.890 Other specified postprocedural states; X50.1XXA Overexertion from prolonged static or awkward postures, initial encounter
CPT/HCPCS: 29880; J2003 ×2; J2250; J0330; J1100; J0690; J2405; J0171; J3010; J2704; J1171

== ENCOUNTER → 2024-08-02 | Outpatient (CLI) | payer BC ==
--- NOTE | 2024-08-05 17:43 | MR ---
EXAMINATION TYPE: MR neck wo/w con DATE OF EXAM: 08/02/2024 6:57 AM COMPARISON: None. CLINICAL INDICATION: Female, 58 years old with history of D17.9 lipoma, F/U lipoma TECHNIQUE: Multiplanar, multiecho imaging on a 3.0 Joi magnet is performed through the brain. Stud y is performed within 24 hours of arrival to the hospital.Multiplanar, multiecho imaging on a 3.0 Trisha la magnet is performed through the neck. IV Contrast: 8 mL Gadobutrol (None, if empty) FINDINGS: There are scattered small lymph nodes throughout the bilateral neck. No suspicious enlarged lymphadenopathy is identified. There is a hyperintense area on T1-weighted sequences within the left torus tuberous. This remains hy perintense on fat saturated T2 weighted sequences with only mild diminished signal. This measures 1. 4 x 0.9 cm. Previous measurement 2.1 x 1.2 cm. This area appears stable over the interval. Parotid glands appear normal. Submandibular glands are normal. Paranasal sinuses are clear mastoid ai r cells are clear. Hypopharynx is normal. IMPRESSION: 1. Stable oval density in the left torus tubarius region may be a small lipoma which appears unchange d over the interval. [facility], , 08/05/2024 5:41 PM
== END | disposition home or self-care (01) ==
LOC: RADMRIMAIN 05:56
PROVIDERS: ATTEND Student in an Organized Health Care Education/Training Program
DX: D17.9 Benign lipomatous neoplasm, unspecified (principal)
CPT/HCPCS: 70543; A9585